=== PATIENT | female | born 1975 | race African-American/Black ===

== ENCOUNTER 2020-08-31 15:32 | Emergency (ER) | payer BC ==
[~2020-08-31] VITALS: Ht 162.6 cm; Wt 93.5 kg
--- NOTE | 2020-08-31 15:38 | PHYS DOC ---
Adult General Chief Complaint Chief Complaint: GI PROBLEM HPI HPI Patient is a 45-year-old female who reports waking up 2 days ago with lower left and lower right abdominal pain and discomfort that she rates a 9/10 on a 1-10 pain scale. Patient also states she has had 4 bouts of watery diarrhea without noticing any blood in her stool, patient states she has had diarrhea problems for months and is being closely followed up by her primary care physician Dr. Mary. Patient states she is slightly nauseated, denies any vomiting, chest pain, chest palpitations, fever or chills, headaches, nasal congestion. Patient does states she has seasonal allergies, tested negative to the coronavirus 1 week ago. Has not had a Covid19 vaccination yet. Patient denies any rashes to her skin, numbness or tingling to her extremities, denies swelling to her extremities. Patient denies any other physical complaints or physical concerns. Patient states she is allergic to ampicillin, takes Metformin, losartan, amiodarone, a water pill, folic acid, an antidepressant, and antianxiety medication. Patient denies recent travel. Review of Systems Review of Systems 14 body systems of review of systems have been reviewed. See HPI for pertinent positives and negative responses, otherwise all other systems are negative, nonpertinent or noncontributory. Family History Family History Patient reports her mother had stomach cancer. Physical Exam Physical Exam Constitutional: Well developed, well nourished, no acute distress, non-toxic appearance. 45-year-old female in no apparent distress. HENT: Normocephalic, atraumatic, bilateral external ears normal, oropharynx moist, no oral exudates, nose normal. Oropharynx moist, no infectious process appreciated, no lymphadenopathy of the head or neck appreciated. Bilateral TMs within normal limits. Nasal turbinates are not erythematous, no drainage appreciated. Eyes: PERRLA, EOMI, conjunctiva normal, no discharge. Neck: Normal range of motion, no tenderness, supple, no stridor. No meningismus signs, no C-spine tenderness, no nuchal rigidity appreciated. Cardiovascular:Heart rate regular rhythm, heart sounds S1-S2 auscultation. Lungs & Thorax: Bilateral breath sounds clear to auscultation, no adventitious lung sounds appreciated. Abdomen: Bowel sounds normal, soft, no masses, no pulsatile masses. No tenderness to the upper left or upper right quadrant, no Haas sign, negative McBurney's point tenderness, no rebound tenderness, generalized pain to palpation of lower quadrant area. No areas of ecchymosis appreciated of the abdomen. Skin: Warm, dry, no erythema, no rash. Back: No tenderness to palpation along midline vertebral column, bony prominences, or adjacent structures of the back. Extremities: No tenderness, no cyanosis, no clubbing, ROM intact, no edema. Neurologic: Alert and oriented X 3, normal motor function, normal sensory function, no focal deficits noted. Psychologic: Affect normal, judgement normal, mood normal. Current Patient Data Lab Results Laboratory Tests Test 08/31/20 15:38 08/31/20 15:48 Urine Collection Type Unknown Urine Color Yellow Urine Clarity Hazy Urine pH 7.0 Urine Specific [place] 1.020 Urine Protein Trace Urine Glucose (UA) Neg mg/dL Urine Ketones (Stick) Neg mg/dL Urine Blood Small Urine Nitrite Neg Urine Bilirubin Neg Urine Urobilinogen Dipstick 0.2 mg/dL Urine Leukocyte Esterase Neg Urine RBC 1-2 /HPF Urine WBC Occ /HPF Urine Squamous Epithelial Cells Many /LPF Urine Bacteria Few /HPF Urine Mucus Mod /LPF White Blood Count 7.9 x10^3/uL Red Blood Count 5.29 x10^6/uL Hemoglobin 13.3 g/dL Hematocrit 41.3 % Mean Corpuscular Volume 78 fL Mean Corpuscular Hemoglobin 25 pg Mean Corpuscular Hemoglobin Concent 32 g/dL Red Cell Distribution Width 16.4 % Platelet Count 371 x10^3/uL Neutrophils (%) (Auto) 58 % Lymphocytes (%) (Auto) 31 % Monocytes (%) (Auto) 7 % Eosinophils (%) (Auto) 4 % Basophils (%) (Auto) 0 % Neutrophils # (Auto) 4.6 x10^3uL Lymphocytes # (Auto) 2.4 x10^3/uL Monocytes # (Auto) 0.6 x10^3/uL Eosinophils # (Auto) 0.3 x10^3/uL Basophils # (Auto) 0.0 x10^3/uL Sodium Level 144 mmol/L Potassium Level 3.0 mmol/L Chloride Level 105 mmol/L Carbon Dioxide Level 29 mmol/L Anion Gap 10 Blood Urea Nitrogen 12 mg/dL Creatinine 0.9 mg/dL Estimated GFR (Cockcroft-Gault) 81.9 BUN/Creatinine Ratio 13 Glucose Level 112 mg/dL Calcium Level 9.1 mg/dL Total Bilirubin 0.2 mg/dL Aspartate Amino Transf (AST/SGOT) 16 U/L Alanine Aminotransferase (ALT/SGPT) 31 U/L Alkaline Phosphatase 86 U/L Total Protein 7.6 g/dL Albumin 3.8 g/dL Albumin/Globulin Ratio 1.0 Lipase 146 U/L Current Medications Medications (Trade) Dose Ordered Sig/Armando Route PRN Reason Start Time Stop Time Status Last Admin Dose Admin Sodium Chloride 1,000 ml @ 1,000 mls/hr 1X ONCE IV 08/31/20 16:15 08/31/20 17:14 DC 08/31/20 16:34 Ketorolac Tromethamine (Toradol 30mg Vial) 30 mg 1X ONCE IVP 08/31/20 17:15 08/31/20 17:16 DC 08/31/20 17:22 Potassium Chloride (Klor-Con) 40 meq 1X ONCE PO 08/31/20 17:15 08/31/20 17:16 DC 08/31/20 17:23 Iohexol (Omnipaque 300 Mg/ml) 75 ml 1X ONCE IV 08/31/20 17:30 08/31/20 17:34 DC 08/31/20 17:50 EKG EKG [] Radiology/Procedures Radiology/Procedures []PATIENT: NADINE MCGHEE AACCOUNT: [id number]#: [id number] : 1975 LOCATION: ER AGE: 45 SEX: F EXAM STATUS: REG ER ORD. PHYSICIAN: JUDAH DANG APRN REASON: LOW ABDOMEN PAIN WITH DIARRHEA PROCEDURE: CT ABD PELV W/ IV CONTRST ONLY INDICATION: Reason: LOW ABDOMEN PAIN WITH DIARRHEA / Spl. Instructions: / History: . COMPARISON: None. TECHNIQUE: Axial CT images obtained through the abdomen and pelvis with contrast. One or more of the following individualized dose reduction techniques were utilized for this examination: 1. Automated exposure control; 2. Adjustment of the mA and/or kV according to patient size; 3. Use of iterative reconstruction technique. FINDINGS: 3 mm nodule at the right lung base. Abdominal aorta is not aneurysmal. Small fat-containing umbilical hernia. Liver is low density which can be seen with fatty infiltration. Prominent in size. No peripancreatic fluid collection. Spleen is unremarkable. No left-sided hydronephrosis. Urinary bladder has minimal urine within it with some prominence of the wall. No right-sided hydronephrosis. There are some calcifications in the pelvis which are likely secondary to phleboliths. No periappendiceal inflammatory changes. No dilated loops of bowel to suggest obstruction. Degenerative changes of the spine. Scattered lymph nodes in the mesentery. IMPRESSION: * Urinary bladder is only partially distended but the wall is mildly prominent. Could be from a region of contraction but would correlate with symptoms and lab markers to ensure this is not from an early cystitis. * Liver is low density which can be seen with fatty infiltration. Electronically signed by: Hiral Okeefe MD (08/31/2020 6:37 PM) [id number] DICTATED AND SIGNED BY: HIRAL OKEEFE MD DATE: 08/31/201826 CC: JUDAH DANG APRN; JACQUELIN WASSERMAN ~MTH0 0 Heart Score C/O Chest Pain: No Risk Factors: Risk Factors: DM, Current or recent (<one month) smoker, HTN, HLP, family histo ry of CAD, obesity. Risk Scores: Risk Factors: DM, Current or recent (<one month) smoker, HTN, HLP, family history of CAD, obesity. Course & Med Decision Making Course & Med Decision Making Pertinent Labs and Imaging studies reviewed. (See chart for details) 45-year-old female, vital signs reviewed, presents to the emergency department concerning 2 days of lower abdominal pain with diarrhea today x4. Physical examination concerning acute abdominal process versus simple cystitis. An abdominal work-up was initiated in the ER, urinalysis assay as well. Patient was given 1 L normal saline along with 30 mg IV Toradol. The patient's urine was infected, CT abdomen consistent with cystitis. No other abnormalities or concerns from CT abdomen pelvis or serum labs. Patient did not have any bouts of diarrhea during her ER stay, patient states she will self treat at home with Pepto-Bismol if her diarrhea returns. Discussed findings with patient, the patient reports pain relief with pain medication given, patient gave verbal understanding of diagnosis of urinary tract infection. Discussed strict follow-up with Dr. Mary for ongoing evaluation of longstanding history of intermittent abdominal pain. Patient gave verbal understanding of discharge home instruction, urinary tract infection antibiotic use, PCP follow-up, return to ER precautions, patient was discharged home without incident. Dragon Disclaimer Dragon Disclaimer This electronic medical record was generated, in whole or in part, using a voice recognition dictation system. Departure Departure: Impression: Primary Impression: Urinary tract infection Additional Impressions: Abdominal pain Diarrhea Disposition: 01 DC HOME SELF CARE/HOMELESS Condition: GOOD Patient Instructions: Urinary Tract Infection Additional Instructions: We have done an extensive work-up of your abdominal pain and diarrhea complaint today, your serum lab work did not show any concerns for infectious process, CT scan of your abdomen was concerning for a bladder infection, your urinalysis confirmed infectious process of your urinary tract. I am starting you on an antibiotic for a urinary tract infection. Please follow-up with Dr. Mary soon for ongoing evaluation of your chronic abdominal pains. Return to the emergenc y department for worsening symptoms or other concerns. EMERGENCY DEPARTMENT GENERAL DISCHARGE INSTRUCTIONS Thank you for coming to [facility] (ED) today and trusting us with you care. We trust that you had a positivie experience in our Emergency Department. If you wish to speak to the department management, you may call the director at [phone]. YOUR FOLLOW UP INSTRUCTIONS ARE FOLLOWS: 1. Do you have a private Doctor? If you do not have a private doctor, please ask for a resource list of physicians or clinics that may be able to assist you with follow up care. 2. The Emergency Physician has interpreted your x-rays. The X-Ray specialist will also review them. If there is a change in the findings, you will be notified in 48 hours when at all possible. 3. A lab test or culture has been done, your results will be reviewed and you will be notified if you need a change in treatment. ADDITIONAL INSTRUCTIONS AND INFORMATION: 1. Your care today has been supervised by a physician who is specially trained in emergency care. Many problems require more than one evaluation for a complete diagnosis and treatment. We recommend that you schedule your follow up appointment as recommended to ensure complete treatment of you illness or injury. If you are unable to obtain follow up care and continue to have a problem, or if your condition worsens, we recommend that you return to the ED. 2. We are not able to safely determine your condition over the phone nor are we able to give sound medical advice over the phone. For these safety reasons, if you call for medical advice we will ask you to come to the ED for further evaluation. 3. If you have any questions regarding these discharge instructions please call the ED at [phone]. SAFETY INFORMATION: In the interest of safety, wellness, and injury prevention; we encourage you to wear your sealbelt, if you smoke; quite smoking, and we encourage family to use a protective helmet for bicycling and other sporting events that present an increased risk for head injury. IF YOUR SYMPTOMS WORSEN OR NEW SYMPTOMS DEVELOP, OR YOU HAVE CONCERNS ABOUT YOUR CONDITION; OR IF YOUR CONDITION WORSENS WHILE YOU ARE WAITING FOR YOUR FOLLOW UP APPOINTMENT; EITHER CONTACT YOUR PRIMARY CARE DOCTOR, THE PHYSICIAN WHOSE NAME AND NUMBER YOU WERE GIVEN, OR RETURN TO THE ED IMMEDIATELY. Scripts Cephalexin (CEPHALEXIN) 500 Mg Capsule 1 CAP PO BID for UTI for 7 Days, #14 CAP 0 Refills Prov: JUDAH DANG APRN 08/31/20 Problem Qualifiers Primary Impression: Urinary tract infection Urinary tract infection type: acute cystitis Hematuria presence: with hematuria Qualified Codes: N30.01 - Acute cystitis with hematuria Additional Impressions: Abdominal pain Abdominal location: generalized Qualified Codes: R10.84 - Generalized abdominal pain Diarrhea Diarrhea type: unspecified type Qualified Codes: R19.7 - Diarrhea, unspecified JUDAH DANG APRN Aug 31, 2020 15:38
[2020-08-31] MEDS ORDERED: IV NORMAL SALINE 1,000ML 1,000 ML IV ONE (16:15)
[2020-08-31 16:39] LABS: BASO % 0 % (0-3); EOS # 0.3 x10^3/uL (0.0-0.7); EOS % 4 % (0-3); HEMATOCRIT 41.3 % (36.0-47.0); HEMOGLOBIN 13.3 g/dL (12.0-15.5); LYMPH # 2.4 x10^3/uL (1.0-4.8); LYMPH % 31 % (24-48); MEAN CORPUSCULAR HEMOGLOBIN 25 pg (25-35); MEAN CORPUSCULAR HGB CONC 32 g/dL (31-37); MEAN CORPUSCULAR VOLUME 78 fL (79-100); MONO # 0.6 x10^3/uL (0.0-1.1); MONO % 7 % (0-9); NEUT # 4.6 x10^3uL (1.8-7.7); NEUT % 58 % (31-73); PLATELET COUNT 371 x10^3/uL (140-400); RED BLOOD COUNT 5.29 x10^6/uL (3.50-5.40); RED CELL DISTRIBUTION WIDTH 16.4 % (11.5-14.5); WHITE BLOOD COUNT 7.9 x10^3/uL (4.0-11.0)
[2020-08-31 16:53] LABS: CALCIUM 9.1 mg/dL (8.5-10.1); CREATININE 0.9 mg/dL (0.6-1.0); GFR 81.9
[2020-08-31 17:00] LABS: ALBUMIN 3.8 g/dL (3.4-5.0); TOTAL BILIRUBIN 0.2 mg/dL (0.2-1.0); TOTAL PROTEIN 7.6 g/dL (6.4-8.2)
[2020-08-31] MEDS ORDERED: KETOROLAC 30 MG/ML VIAL. IVP ONE (17:15)
[2020-08-31] MEDS ORDERED: POTASSIUM CHLORIDE 20 MEQ TABLET.ER. PO ONE (17:15)
[2020-08-31] MEDS ORDERED: IOHEXOL 300 MG/ML 75 ML VIAL. IV ONE (17:30)
[2020-08-31 18:26] LABS: BACTERIA,URINE FEW /HPF (0-FEW); BILIRUBIN,URINE NEG (NEG); CLARITY,URINE HAZY; COLOR,URINE YELLOW; GLUCOSE,URINE NEG (NEG); NITRITE,URINE NEG (NEG); SQUAMOUS EPITHELIAL CELL,UR MANY /LPF; UROBILINOGEN,URINE 0.2 mg/dL (0.2 mg/dL); WBC,URINE OCC /HPF (0-4)
--- NOTE | 2020-08-31 18:39 | RAD ---
INDICATION: Reason: LOW ABDOMEN PAIN WITH DIARRHEA / Spl. Instructions: / History: . COMPARISON: None. TECHNIQUE: Axial CT images obtained through the abdomen and pelvis with contrast. One or more of the following individualized dose reduction techniques were utilized for this examinat ion: 1. Automated exposure control; 2. Adjustment of the mA and/or kV according to patient size; 3 . Use of iterative reconstruction technique. FINDINGS: 3 mm nodule at the right lung base. Abdominal aorta is not aneurysmal. Small fat-containing umbilical hernia. Liver is low density which can be seen with fatty infiltration. Prominent in size. No peripancreatic fluid collection. Spleen is unremarkable. No left-sided hydronephrosis. Urinary bladder has minimal urine within it with some prominence of the wall. No right-sided hydronephrosis. There are some calcifications in the pelvis which are likely secondary to phleboliths. No periappendiceal inflammatory changes. No dilated loops of bowel to suggest obstruction. Degenerative changes of the spine. Scattered lymph nodes in the mesentery. IMPRESSION: * Urinary bladder is only partially distended but the wall is mildly prominent. Could be from a javier on of contraction but would correlate with symptoms and lab markers to ensure this is not from an ear ly cystitis. * Liver is low density which can be seen with fatty infiltration. Electronically signed by: Ramses Ayala MD (08/31/2020 6:37 PM) [id number]
[2020-08-31] MEDS ORDERED: CEPH500C PO (19:45)
[2020-08-31 19:53] VITALS: BP 146/68
== END 2020-08-31 19:51 | disposition home or self-care (01) ==
LOC: ER 15:32
DX: N39.0 Urinary tract infection, site not specified (principal); R19.7 Diarrhea, unspecified
CPT/HCPCS: 36415; 74177; 80053; 81001; 83690; 85025; 96361; 96374; 99285; J1885; J7030; Q9967